=== PATIENT | male | born 1960 | race Asian ===

== ENCOUNTER 2019-04-12 13:05 | Day surgery (SDC) | payer OTHER ==
[~2019-04-12] VITALS: Ht 177.8 cm; Wt 92.7 kg
[2019-04-12 13:56] VITALS: Ht 177.8 cm; Wt 92.7 kg
[2019-04-12] MEDS ORDERED: METF-849 PO (14:02)
[2019-04-12] MEDS ORDERED: LOSA100T15 PO (14:02)
[2019-04-12] MEDS ORDERED: ATOR40TA68 PO (14:02)
[2019-04-12] MEDS ORDERED: OMEP40CA6 PO (14:02)
[2019-04-12 14:56] VITALS: BP 110/66; PULSE 59; RESP 16
--- NOTE | 2019-04-12 15:13 | PREAC ---
Date/Time of Note Date/Time of Note DATE: 04/12/19 TIME: 15:09 Anesthesia Eval and Record Evaluation Time Pre-Procedure Interview DATE: 04/12/19 TIME: 15:09 Age 58 Sex male NPO: 8 hrs Preoperative diagnosis [facility]H, Dysphagia, Reflux Planned procedure EGD, Colonoscopy Past Medical History Past Medical History: Includes Cardio: HTN, Dyslipidemia Endo: Diabetes GI: Obesity, Other (Hx of colon cancer s/p Left Hemicolectomy @ 2011) Surgery & Anesthesia Issues No known issue Meds Anticoagulation: No Beta Pavan within 24 hr: No Reason Beta Pavan not given: Pt. not on B-Pavan Reported Medications Atorvastatin* (Atorvastatin*) 40 Mg Tablet, 20 MG PO QHS, #30 TAB 04/12/19 Omeprazole* (Omeprazole*) 40 Mg Capsule.dr, 40 MG PO DAILY, #30 CAP 04/12/19 Losartan Potassium* (Losartan Potassium*) 100 Mg Tablet, 100 MG PO DAILY, TAB 04/12/19 Metformin* (Glucophage*) 500 Mg Tab, 500 MG PO BID WITH MEALS, #90 TAB 04/12/19 Meds reviewed: Yes Allergies Coded Allergies: No Known Allergy (Unverified , 04/12/19) Allergies Reviewed: Yes Labs/Studies Labs Reviewed: Reviewed by anesthesiologist test: N/A Pre-procedure Exam Last vitals Vital Signs Date Temp Pulse Resp B/P (MAP) Pulse Ox O2 O2 Flow FiO2 Time Delivery Rate 04/12/19 98.2 59 16 110/66 97 Room Air 14:56 (81) Airway: Adequate mouth opening, Adequate thyromental dist Mallampati: Mallampati II Teeth: Normal Lung: Normal Heart: Normal ASA Physical Status ASA physical status: 3 Emergency: None Planned Anesthetic General/MAC: MAC Planned Pain Management Parenteral pain med Pre-operative Attestations Prior to commencing anesthesia and surgery, the patient was re-evaluated, there was verification of: *The patient's identity *The results of appropriate recent lab work and preoperative vital signs *The above evaluation not changing prior to induction *Anesthetic plan, risk benefits, alternative and complications discussed with patient/family; questions answered; patient/family understands, accepts and wishes to proceed. JORGE KNOWLES MD Apr 12, 2019 15:13
[2019-04-12] MEDS ORDERED: DEXAMETHASONE 4 MG/ML 1 ML INJ ONE ×2 (16:23→16:24)
[2019-04-12] MEDS ORDERED: PROPOFOL 60 ML ONE (16:23)
[2019-04-12] MEDS ORDERED: PHENYLephrine (100 MCG/ML) 10ML SYG ONE (16:24)
[2019-04-12] MEDS ORDERED: ONDANSETRON 4 MG INJ ONE (16:24)
[2019-04-12] MEDS ORDERED: METOCLOPRAMIDE 10 MG INJ ONE (16:24)
--- NOTE | 2019-04-12 16:34 | PAC ---
Date/Time of Note Date/Time of Note DATE: 04/12/19 TIME: 16:33 Post-Anesthesia Notes Post-Anesthesia Note Last documented vital signs Vital Signs Date Temp Pulse Resp B/P (MAP) Pulse Ox O2 O2 Flow FiO2 Time Delivery Rate 04/12/19 98.2 59 16 110/66 97 Room Air 16:36 (81) Activity: WNL Respiratory function: WNL Cardiovascular function: WNL Mental status: Baseline Pain reasonably controlled: Yes Hydration appropriate: Yes Nausea/Vomiting absent: Yes JORGE KNOWLES MD Apr 12, 2019 16:34
[2019-04-12] MEDS ORDERED: ALBUTEROL 0.083% (NEB) 2.5 MG/3 ML AMP ONE ×3 (16:35→16:38)
[2019-04-12] MEDS: ALBUTEROL 0.083% (NEB) 2.5 MG/3 ML AMP HHN PRN ×2 (17:00→17:03)
[2019-04-12 17:09] VITALS: BP 97/65; RESP 16
== END 2019-04-12 18:15 | disposition home or self-care (01) ==
LOC: GIL 13:05
PROVIDERS: ATTEND Internal Medicine Gastroenterology
DX: Z12.11 Encounter for screening for malignant neoplasm of colon (principal); D12.5 Benign neoplasm of sigmoid colon; K64.8 Other hemorrhoids; K44.9 Diaphragmatic hernia without obstruction or gangrene; K21.0 Gastro-esophageal reflux disease with esophagitis; E11.9 Type 2 diabetes mellitus without complications; I10 Essential (primary) hypertension; E78.5 Hyperlipidemia, unspecified; Z79.84 Long term (current) use of oral hypoglycemic drugs
CPT/HCPCS: 43239; 45380; 82962; 88305; 88312; 88313; 94664; J1100; J2370; J2405; J2765; Z7610